=== PATIENT | male | born 1960 | race Caucasian/White ===

== ENCOUNTER 2023-06-23 07:25 | Emergency (ER) | payer BC, OTHER ==
[~2023-06-23] VITALS: Ht 180.3 cm; Wt 83.8 kg
[2023-06-23 08:09] VITALS: BP 103/64; PULSE 99; RESP 18; TEMP 101.7; O2SAT 96
[2023-06-23] MEDS ORDERED: cefTRIAXone SOD 1,000 MG VL IM ONE (08:45)
[2023-06-23] MEDS ORDERED: ACET-1080 PO ×2 (08:56→15:58)
[2023-06-23] MEDS ORDERED: AMOX875T4 PO (08:56)
== END 2023-06-23 09:59 | disposition home or self-care (01) ==
LOC: ER 07:25
DX: U07.1 COVID-19 (principal); J03.90 Acute tonsillitis, unspecified; H66.93 Otitis media, unspecified, bilateral; R07.89 Other chest pain
CPT/HCPCS: 71045; 96372; 99283; J0696